=== PATIENT | male | born 1930 | race Caucasian/White ===

== ENCOUNTER 2018-08-20 14:49 | Inpatient (IN) | payer MEDICARE, BC ==
[~2018-08-20] VITALS: Ht 175.3 cm; Wt 69.0 kg
[2018-08-20] MEDS ORDERED: ACETAMINOPHEN 650 MG SUPP PR ONE (15:30)
--- NOTE | 2018-08-20 15:39 | REP ---
Clinical: Trauma. Comparison: None . Findings: Age-related atrophy and microvascular ischemic changes are appreciated. The ventricles and sulci are symmetric. [place]-white differentiation is maintained. There is no evidence for acute intracranial hemorrhage, mass/mass effect, pathology or infarction. No extra-axial fluid collection. Calvarium is intact. Paranasal sinuses and mastoid air cells are clear. Postsurgical changes to the right by suggested. Impression: Age related atrophy and microvascular ischemic changes. No acute intracranial hemorrhage, infarction, or mass/mass effect. Electronically Signed by Ten Palomares MD 08/20/2018 03:30 P
--- NOTE | 2018-08-20 15:40 | REP ---
Clinical: Trauma. Technique: Axial noncontrast images from the skull base to the thoracic inlet with coronal and sagittal re-formations. Findings: Alignment and lordosis maintained. Moderate/advanced multilevel degenerative disc osteophyte complexes are appreciated. There is no evidence for acute fracture / compression injury or subluxation. There are elements and spinous processes are intact. Spinal canal is patent. Paravertebral soft tissues are within normal limits. Impression: Osteopenia and multilevel degenerative changes. No acute fracture / compression injury or subluxation. Electronically Signed by Ten Palomares MD 08/20/2018 03:32 P
--- NOTE | 2018-08-20 15:41 | REP ---
Clinical: Sepsis. Shock . Comparison: None . Findings: The mediastinum and cardiac silhouette are stable and within normal limits for portable technique. The lung tracy demonstrate chronic-appearing changes without acute consolidation, effusion, or pneumothorax. However, left lower lobe atelectasis cannot be excluded. Skeletal structures are intact. Impression: Chronic-appearing changes. Left lower lobe atelectasis cannot be excluded. Electronically Signed by Ten Palomares MD 08/20/2018 03:33 P
--- NOTE | 2018-08-20 15:49 | ECGEPIP ---
[facility] - ED Test Date: 2018-08-20 Pat Name: ALEXANDER SANDY Department: Room: - Gender: Male Tapper Shank: : 1930 Requested By: Marlen Hinson Order Number: [id number] Reading MD: Marlen Hinson Measurements Intervals Chase Rate: 134 P: FL: -1 QRS: 103 QRSD: 122 T: 13 QT: 306 QTc: 458 Interpretive Statements ATRIAL FIBRILLATION WITH RAPID VENTRICULAR RESPONSE INDETERMINATE AXIS INFERIOR MYOCARDIAL INFARCTION, PROBABLY OLD WITH POSTERIOR EXTENSION POSSIBLE PRIOR INFERIOIR INFARCT No prior Electronically Signed on 08-20-2018 15:49:08 EDT by Marlen Hisnon
[2018-08-20] MEDS ORDERED: WARF-58 PO (16:01)
[2018-08-20] MEDS ORDERED: WELLTAB40 PO (16:01)
[2018-08-20] MEDS ORDERED: AMLO5TAB6 PO (16:01)
[2018-08-20] MEDS ORDERED: WELLTAB38 PO (16:01)
[2018-08-20] MEDS ORDERED: DONE10TA90 PO (16:01)
[2018-08-20] MEDS ORDERED: CBD OIL (16:01)
[2018-08-20] MEDS ORDERED: WARF-18 PO (16:01)
[2018-08-20] MEDS ORDERED: PRIM50TA6 PO (16:01)
[2018-08-20] MEDS ORDERED: PROP40TA62 PO (16:01)
[2018-08-20] MEDS ORDERED: LIPI20TA PO (16:01)
[2018-08-20] MEDS ORDERED: NAME10TA PO (16:01)
[2018-08-20] MEDS ORDERED: VENL75CA2 PO (16:01)
[2018-08-20] MEDS ORDERED: GABA-845 PO (16:01)
[2018-08-20] MEDS ORDERED: VENL150C43 PO (16:01)
[2018-08-20] MEDS ORDERED: ACET1TAB55 PO (16:01)
[2018-08-20] MEDS ORDERED: LISI-542 PO (16:01)
[2018-08-20 16:20] LABS: BASO # 0.1 10^3/uL (0.0-0.2); BASO % 0.3 % (0.0-1.0); EOS % 0.1 % (0.0-3.0); HEMATOCRIT 43.1 % (42.0-52.0); HEMOGLOBIN 14.2 g/dl (13.5-17.5); LYMPH # 0.4 10^3/uL (1.5-4.5); MEAN CORPUSCULAR HEMOGLOBIN 30.5 pg (27.0-33.0); MEAN CORPUSCULAR HGB CONC 32.9 g/dl (32.0-36.5); MEAN CORPUSCULAR VOLUME 92.5 fl (80.0-96.0); MONO # 1.1 10^3/uL (0.0-0.8); MONO % 6.1 % (0.0-5.0); NEUTROPHILS # 16.4 10^3/uL (1.8-7.7); NEUTROPHILS % 91.1 % (36.0-66.0); PLATELET COUNT, AUTOMATED 207 10^3/uL (150-450); RED BLOOD COUNT 4.66 10^6/uL (4.30-6.10); WHITE BLOOD COUNT 17.9 10^3/uL (4.0-10.0)
[2018-08-20] MEDS ORDERED: WARF-23 PO (16:26)
[2018-08-20] MEDS ORDERED: WARF-60 PO (16:26)
[2018-08-20 16:31] LABS: INR 2.58; PROTHROMBIN TIME 27.5 SECONDS (11.8-14.0)
[2018-08-20 16:45] LABS: ALBUMIN 3.1 GM/DL (3.2-5.2); ALT/SGPT 16 U/L (12-78); BILIRUBIN,DIRECT 0.3 MG/DL (0.0-0.2); BILIRUBIN,TOTAL 0.8 MG/DL (0.2-1.0); BLOOD UREA NITROGEN 24 MG/DL (7-18); CALCIUM LEVEL 8.5 MG/DL (8.8-10.2); CARBON DIOXIDE LEVEL 24 MEQ/L (21-32); CHLORIDE LEVEL 109 MEQ/L (98-107); CK-MB VALUE MASS 1.6 NG/ML (<3.6); CPK CREATINE PHOSPHOKINASE 144 U/L (39-308); CREATININE FOR GFR 1.33 MG/DL (0.70-1.30); GLOMERULAR FILTRATION RATE 53.9 (>35); GLUCOSE, FASTING 85 MG/DL (70-100); MB/CK RELATIVE INDEX 1.11 (< OR =4); SODIUM LEVEL 143 MEQ/L (136-145); TOTAL PROTEIN 6.9 GM/DL (6.4-8.2); TROPONIN I < 0.02 NG/ML (< 0.10)
[2018-08-20] MEDS ORDERED: PROPRANOLOL 20 MG TAB PO ONE (16:45)
[2018-08-20] MEDS ORDERED: VANCOMYCIN HCL 1,000 MG, VIAL MATE ADAPTER 1 EACH in D5W 250 ML IV ONE (17:00)
[2018-08-20] MEDS ORDERED: PIPERACILLIN/TAZOBACTAM SOD 3.375 GM in D5W MINI-BAG PLUS 50 ML IV ONE (17:00)
[2018-08-20] MEDS ORDERED: SODIUM CHLORIDE 0.9% 1000ML IV ONE (18:30)
[2018-08-20] MEDS ORDERED: LEVALBUTEROL 1.25 MG/0.5 ML CONCENTRATE NEB INH PRN (18:45)
[2018-08-20] MEDS ORDERED: D5W/0.9% SODIUM CHLORIDE 1,000 ML IV SCH (19:15)
--- NOTE | 2018-08-20 19:15 | HPEPDOC ---
General Date of Admission 08/20/18 Date of Service: Aug 20, 2018 Chief Complaint The patient is a 87-year-old male admitted with a reason for visit of AMS. Source: Patient, Family, RN/MD Exam Limitations: Dementia, Hard of hearing Severity: Moderate Associated Symptoms: Cough, Mechanical fall History of Present Illness 87 year old male from [place] vising the area for 2 weeks. He lives with his son and daughter in law in [place], [place] for the past 3 months who were at bedside and history was taken from them . Pateint has dementia and at present more confused than usual and could not contribute much history. He has PMH of Dementia , TIAs, Afib, Essential tremor, Hypertension, H/o chronic pulmonary embolism with severe pulmonary hypertension s/p surgery > 30 years ago, hyperlipidemia, recent falls x 2 in the past 3 months with rib fractures in right and left, intermittent dysphagia to hard solid foods just came up here 3days ago. Last night he was noted to have some cough and some rattling breaths so was put in a recliner to sleep to help with the breathing . This Am he was found down on the floor confused and cold. He was put back to bed and warmed up however as the day progressed he became more and more lethargic and did not have any urine output. He could not be woken up enough to be fed so then they brought him to the hospital. On arrival to the ED he was febrile to 100.3 tachycardic with afib in RVR at 140s hypoxic with EMS to 85% in RA. He was noted to be confused and somnolent. Catheter was placed to collect urine , Urine output was minimal . CXR showed possible Atelectasis at the right base, Labs significant for WBC of 17K. He was admitted for Pneumonia, acut respiratory faiure with hypoxia and metabolic encephalopathy , Afib with RVR Home Medications Scheduled Amlodipine Besylate (Amlodipine Besylate) 5 Mg Tablet, 5 MG PO QHS, (Reported) Atorvastatin Calcium (Lipitor) 20 Mg Tablet, 20 MG PO QHS, (Reported) Bupropion HCl (Wellbutrin Xl) 300 Mg Tab.er.24h, 300 MG PO QHS, (Reported) Bupropion HCl (Wellbutrin Xl) 150 Mg Tab.er.24h, 150 MG PO QHS, (Reported) Donepezil HCl (Donepezil HCl) 10 Mg Tablet, 10 MG PO QHS, (Reported) Gabapentin (Gabapentin) 400 Mg Capsule, 400 MG PO BID, (Reported) Lisinopril (Lisinopril) 5 Mg Tablet, 5 MG PO QHS, (Reported) Memantine HCl (Namenda) 10 Mg Tablet, 10 MG PO BID, (Reported) Primidone (Primidone) 50 Mg Tablet, 200 MG PO BID, (Reported) Propranolol HCl (Propranolol HCl) 40 Mg Tablet, 40 MG PO BID, (Reported) Venlafaxine HCl (Venlafaxine HCl ER) 150 Mg Cap.er.24h, 300 MG PO QHS, (Reported) Venlafaxine HCl (Venlafaxine HCl ER) 75 Mg Cap.er.24h, 75 MG PO QHS, (Reported) Warfarin Sodium (Warfarin Sodium) 5 Mg Tablet, 5 MG PO Q2D, (Reported) PT ALTERNATES 5MG AND 6 MG, TOOK 6 MG 08/19 Warfarin Sodium (Warfarin Sodium) 6 Mg Tablet, 6 MG PO Q2D, (Reported) PT ALTERNATES 5MG AND 6 MG, HAD 6MG 08/19 Miscellaneous Medications Cannabidiol (Cbd Oil) Btl, (Reported) TAKES 5MG CAPSULES: 1 IN THE AM AND 2 IN THE EVENING FOR TREMORS Allergies Coded Allergies: No Known Allergies (Unverified , 08/20/18) Past Medical History Medical History Dementia , TIAs, Afib, Essential tremor, Hypertension, H/o chronic pulmonary embolism with severe pulmonary hypertension s/p surgery > 30 years ago, hyperlipidemia, recent falls x 2 in the past 3 months with rib fractures in right and left Surgical History Surgery for pulmonary hypertension 30 years ago, zenker's diverticulum surgery Family History Significant Family History: Other (son and grandsons have protein S deficiency) Social History * Smoker: Denies Alcohol: Denies Drugs: denies A-FIB/CHADSVASC A-FIB History Current/History of A-Fib/PAF?: Yes Current PO Anticoag Therapy: Yes Review of Systems Constitutional: Reports: Fever Eyes: Denies: Pain, Vision change ENT: Denies: Head Aches, Ear Pain, Dysphagia Skin: Denies: Rash, Lesions, Breakdown Pulmonary: Reports: Dyspnea, Cough Cardiovascular: Reports: Edema Gastrointestinal: Reports: Constipation; Denies: Nausea, Vomiting, Abdominal Pain, Diarrhea Genitourinary: Reports: Other Symptoms (decreased output) Hematologic: Reports: Other Hematologic (mottled feet) Musculoskeletal: Reports: Shoulder Pain (left) Neurological: Reports: Change in speech (garbled ), Confusion, Other Symptoms (tremors in the left hand) Psych: Reports: Memory Issues Physical Examination General Exam: Positive: Cooperative, Mild Distress, Other (somnolent but easily arousable, oriented only to person only, following commands.) Eye Exam: Positive: Conjunctiva & lids normal ENT Exam: Positive: Atraumatic, Mucous membr. moist/pink, Pharynx Normal Neck Exam: Positive: Supple, +2 carotid pulse wo bruit Chest Exam: Positive: Rales (at the right base), Wheezing (right base), Other (coarse breath sounds bilaterallly) Heart Exam: Positive: Tachycardic, Irregular Rhythm, Normal S1, Normal S2; Negative: Gallops, Murmurs, Rubs Telemetry: Positive: Atrial fibrillation Abdomen Exam: Positive: Normal bowel sounds, Soft; Negative: Tenderness Extremity Exam: Positive: Cyanosis, Edema, Normal pulses, Other (cold and mottled both feet but with palpable pulses) Neuro Exam: Positive: Normal Tone, Reflexes 2+, Other (strengh 4/5 in all 4 limbs, no focal neuro deficits) Psych Exam: Negative: Memory Intact, Oriented x 3 Vital Signs Vital Signs Date Time Temp Pulse Resp B/P (MAP) Pulse Ox O2 Delivery O2 Flow Rate FiO2 08/20/18 18:15 126/74 (91) 08/20/18 18:04 145 96 08/20/18 15:15 100.3 24 Laboratory Data Labs 24H Laboratory Tests 2 08/20/18 15:14: Bedside Glucose (Misc Panel) 91 08/20/18 15:44: POC pH (Misc Panel) 7.404, POC Base Excess (Misc Panel) -5.0L, POC Saturated Percent O2 (Misc) 92L, POC pO2 (Misc Panel) 63.0L, POC pCO2 (Misc Panel) 32.1L, POC HCO3 (Misc Panel) 20.0L, POC Total CO2 (Misc Panel) 21.0L 08/20/18 16:00: Anion Gap 10, Glomerular Filtration Rate 53.9, Calcium Level 8.5L, Aspartate Amino Transf (AST/SGOT) 15, Alanine Aminotransferase (ALT/SGPT) 16, Alkaline Phosphatase 137H, Total Bilirubin 0.8, Direct Bilirubin 0.3H, Total Creatine Kinase 144, Creatine Kinase MB 1.6, Creatine Kinase MB Relative Index 1.11, Tro ponin I < 0.02, Total Protein 6.9, Albumin 3.1L, Albumin/Globulin Ratio 0.82L 08/20/18 16:14: Immature Granulocyte % (Auto) 0.4, White Blood Count 17.9H, Red Blood Count 4.66, Hemoglobin 14.2, Hematocrit 43.1, Mean Corpuscular Volume 92.5, Mean Corpuscular Hemoglobin 30.5, Mean Corpuscular Hemoglobin Concent 32.9, Red Cell Distribution Width 16.6H, Platelet Count 207, Neutrophils (%) (Auto) 91.1H, Lymphocytes (%) (Auto) 2.0L, Monocytes (%) (Auto) 6.1H, Eosinophils (%) (Auto) 0.1, Basophils (%) (Auto) 0.3, Neutrophils # (Auto) 16.4H, Lymphocytes # (Auto) 0.4L, Monocytes # (Auto) 1.1H, Eosinophils # (Auto) 0.0, Basophils # (Auto) 0.1, Nucleated Red Blood Cells % (auto) 0.0, Prothrombin Time 27.5H, Prothromb Time International Ratio 2.58, Lactic Acid Level 1.5 CBC/BMP Laboratory Tests 08/20/18 16:00 08/20/18 16:14 Red Blood Count 4.66, Mean Corpuscular Volume 92.5, Mean Corpuscular Hemoglobin 30.5, Mean Corpuscular Hemoglobin Concent 32.9, Red Cell Distribution Width 16.6 H, Neutrophils (%) (Auto) 91.1 H, Lymphocytes (%) (Auto) 2.0 L, Monocytes (%) (Auto) 6.1 H, Eosinophils (%) (Auto) 0.1, Basophils (%) (Auto) 0.3, Neutrophils # (Auto) 16.4 H, Lymphocytes # (Auto) 0.4 L, Monocytes # (Auto) 1.1 H, Eosinophils # (Auto) 0.0, Basophils # (Auto) 0.1 Microbiology Microbiology 08/20/18 Blood Culture, Received Pending 08/20/18 Blood Culture, Received Pending Assessment/Plan 87 year old male from [place] vising the area for 2 weeks. He lives with his son and daughter in law in [place], [place] for the past 3 months who were at bedside and history was taken from them . Pateint has dementia and at present more confused than usual and could not contribute much history. He has PMH of Dementia , TIAs, Afib, Essential tremor, Hypertension, H/o chronic pulmonary em bolism with severe pulmonary hypertension s/p surgery > 30 years ago, hyperlipidemia, recent falls x 2 in the past 3 months with rib fractures in right and left, intermittent dysphagia to hard solid foods just came up here 3days ago. Last night he was noted to have some cough and some rattling breaths so was put in a recliner to sleep to help with the breathing . This Am he was found down on the floor confused and cold. He was put back to bed and warmed up however as the day progressed he became more and more lethargic and did not have any urine output. He could not be woken up enough to be fed so then they brought him to the hospital. On arrival to the ED he was febrile to 100.3 tachycardic with afib in RVR at 140s hypoxic with EMS to 85% in RA. He was noted to be confused and somnolent. Catheter was placed to collect urine , Urine output was minimal . CXR showed possible Atelectasis at the right base, Labs significant for WBC of 17K. He was admitted for Pneumonia, acute respiratory failure with hypoxia and metabolic encephalopathy , Afib with RVR Pneumonia will treat with Zosyn patient does have h/o recent rib fracture on jak right and also intermittent dysphagia to solids so there may be a component of aspiration so using Zosyn for anaerobic coverage. Ns bolus then maintainence fluid Metabolic encephalopathy on the back ground of dementia due to fever and infection Sitter if needed. Acute respiratory failure with hypoxia due to pneumonia lev albuterol prn. oxygen supplementation A fib with RVR will continue propranolol has missed his doses in jak last 24 hours. if still remains uncontrolled will give digoxin. continue coumadin Dementia with anxiety and depression on multiple meds will hold all Hold memantine, bupropion, venlafaxine, donepezil till mental status improves. Hypertension will continue propranolol will continue amlodipine with hold parameters. will hold lisinopril Essential Tremor hold primidone till mental status improves Hyperlipidemia continue statin H/O Pulmonary embolism continue coumadin. H/o multiple TIAs 3 in the last 6 months. Now no focal weakness moves all limbs equally. Plan / VTE VTE Prophylaxis Ordered?: Yes GERTRUDIS AGUIRRE MD Aug 20, 2018 19:15
[2018-08-20] MEDS ORDERED: amLODIPine 5 MG TAB PO SCH (21:00)
[2018-08-20] MEDS ORDERED: LIDOCAINE 2% 5ML JELLY UROJET TOP ONE ×2 (21:30→22:30)
[2018-08-20] MEDS ORDERED: LIDOCAINE 2% 5ML JELLY UROJET As Ordered ONE (21:31)
[2018-08-20] MEDS ORDERED: DIGOXIN INJ 0.5 MG/2 ML AMP (J1160) IV ONE (22:00)
--- NOTE | 2018-08-20 23:19 | IPNPDOC ---
Text Note Date of Service The patient was seen on 08/20/18. NOTE Patient admitted with PNA, Dementia and afib RVR; Called by ED earlier this evening because patient with BPH, urine retention and unable to place scott despite 4 attempts (coude and regular). Urology consulted and attempted with flex scope without success - Case discussed with Dr Brownlee who will take patient to OR for placement. Vital Signs Label Value Date Time Patient Temperature 98.8 degrees F 08/20/181842 Temperature Source Rectal 08/20/181842 Respiratory Rate 24 bpm 08/20/181842 Blood Pressure Assessment 133/74 (93) 08/20/181842 Source Automatic Cuff (NIBP) Position Supine Bedside Pulse Oximetry 97 % 08/20/181842 Pulse 128 08/20/181844 Item Value Date Time Oxygen Flow Rate 2.0 L/min 08/20/181842 VS,Zac, I+O VS, Zac, I+O JAMES GRUBBS DO Aug 20, 2018 23:19
--- NOTE | 2018-08-20 23:28 | SMCUROLCON ---
Urology Consultation General Date of Consultation 08/20/18 Reason For Consultation This patient is seen for Metabolic Encephalopathy, Pneumonia. And urinary retention. History of Present Illness 87 year old male from [place] vising the area for 2 weeks. He lives with his son and daughter in law in [place], [place] for the past 3 months who were at bedside and history was taken from them . Pateint has dementia and at present more confused than usual and could not contribute much history. He has PMH of [place] , TIAs, Afib, Essential tremor, Hypertension, H/o chronic pulmonary embolism with severe pulmonary hypertension s/p surgery > 30 years ago, hyperlipidemia, recent falls x 2 in the past 3 months with rib fractures in right and left, intermittent dysphagia to hard solid foods just came up here 3days ago. Last night he was noted to have some cough and some rattling breaths so was put in a recliner to sleep to help with the breathing . This Am he was found down on the floor confused and cold. He was put back to bed and warmed up however as the day progressed he became more and more lethargic and did not have any urine output. He could not be woken up enough to be fed so then they brought him to the hospital. On arrival to the ED he was febrile to 100.3 tachycardic with afib in RVR at 140s hypoxic with EMS to 85% in RA. He was noted to be confused and somnolent. Catheter was placed to collect urine , Urine output was minimal . CXR showed possible Atelectasis at the right base, Labs significant for WBC of 17K. He was admitted for Pneumonia, acute respiratory failure with hypoxia and metabolic encephalopathy , Afib with RVR. This per Dr. Cobb. Patient has not voided into while in ED. Bladder scan 800cc in bladder. 3 attempts were made to place a Mondragon cath without success. Medications Current Medications Current Medications Amlodipine Besylate (Norvasc) 5 mg QHS PO ; Start 08/20/18 at 21:00 Atorvastatin Calcium (Lipitor) 20 mg QHS PO ; Start 08/20/18 at 21:00 Dextrose/Sodium Chloride 1,000 ml @ 100 mls/hr Q10H IV ; Start 08/20/18 at 19:15 Home Med (Med Rec Complete!) ASDIRECTED XX ; Start 08/20/18 at 16:30; Stop at 16:31; Status DC Levalbuterol HCl (Xopenex Neb) 0.63 mg Q4HP PRN INH SOB/WHEEZING; Start 08/20/18 at 18:45 Piperacillin Sod/ Tazobactam Sod 3.375 gm/Dextrose 50 ml @ 50 mls/hr Q6H IV ; Start 08/21/18 at 00:00 Propranolol HCl (Inderal) 40 mg BID PO ; Start 08/21/18 at 09:00 Warfarin Sodium (Coumadin) 5 mg Q48H PO ; Start 08/20/18 at 21:00 Warfarin Sodium (Coumadin) 6 mg Q48H PO ; Start 08/21/18 at 21:00 Allergies Allergies: Coded Allergies: No Known Allergies (Unverified , 08/20/18) Physical Examination Abdomen Exam: Soft Male Exam: Normal Genital Exam Vital Signs/I&O Vital Signs Date Time Temp Pulse Resp B/P (MAP) Pulse Ox O2 Delivery O2 Flow Rate FiO2 08/20/18 21:12 99.3 08/20/18 18:45 128 127/79 (95) 94 08/20/18 18:43 24 Nasal Cannula 2.0 Laboratory Data 24H Labs Laboratory Tests 2 08/20/18 15:14: Bedside Glucose (Misc Panel) 91 08/20/18 15:44: POC pH (Misc Panel) 7.404, POC Base Excess (Misc Panel) -5.0L, POC Saturated Percent O2 (Misc) 92L, POC pO2 (Misc Panel) 63.0L, POC pCO2 (Misc Panel) 32.1L, POC HCO3 (Misc Panel) 20.0L, POC Total CO2 (Misc Panel) 21.0L 08/20/18 16:00: Anion Gap 10, Glomerular Filtration Rate 53.9, Calcium Level 8.5L, Aspartate Amino Transf (AST/SGOT) 15, Alanine Aminotransferase (ALT/SGPT) 16, Alkaline Phosphatase 137H, Total Bilirubin 0.8, Direct Bilirubin 0.3H, Total Creatine Kinase 144, Creatine Kinase MB 1.6, Creatine Kinase MB Relative Index 1.11, Troponin I < 0.02, Total Protein 6.9, Albumin 3.1L, Albumin/Globulin Ratio 0.82L 08/20/18 16:14: Immature Granulocyte % (Auto) 0.4, White Blood Count 17.9H, Red Blood Count 4.66, Hemoglobin 14.2, Hematocrit 43.1, Mean Corpuscular Volume 92.5, Mean Corpuscular Hemoglobin 30.5, Mean Corpuscular Hemoglobin Concent 32.9, Red Cell Distribution Width 16.6H, Platelet Count 207, Neutrophils (%) (Auto) 91.1H, Lymphocytes (%) (Auto) 2.0L, Monocytes (%) (Auto) 6.1H, Eosinophils (%) (Auto) 0.1, Basophils (%) (Auto) 0.3, Neutrophils # (Auto) 16.4H, Lymphocytes # (Auto) 0.4L, Monocytes # (Auto) 1.1H, Eosinophils # (Auto) 0.0, Basophils # (Auto) 0.1, Nucleated Red Blood Cells % (auto) 0.0, Prothrombin Time 27.5H, Prothromb Time International Ratio 2.58, Lactic Acid Level 1.5 CBC/BMP Laboratory Tests 08/20/18 16:00 08/20/18 16:14 Red Blood Count 4.66, Mean Corpuscular Volume 92.5, Mean Corpuscular Hemoglobin 30.5, Mean Corpuscular Hemoglobin Concent 32.9, Red Cell Distribution Width 16.6 H, Neutrophils (%) (Auto) 91.1 H, Lymphocytes (%) (Auto) 2.0 L, Monocytes (%) (Auto) 6.1 H, Eosinophils (%) (Auto) 0.1, Basophils (%) (Auto) 0.3, Neutrophils # (Auto) 16.4 H, Lymphocytes # (Auto) 0.4 L, Monocytes # (Auto) 1.1 H, Eosinophils # (Auto) 0.0, Basophils # (Auto) 0.1 Microbiology Microbiology 08/20/18 Blood Culture, Received Pending 08/20/18 Blood Culture, Received Pending Assessment Patient is a urinary retention. An attempt to place a 18 [place] Coude catheter was done without success. I attempted to perform cystoscopy and emergency room. This was unsuccessful due to the followin. Patient had multiple false passages. 2. Procedure was performed with the rigid cystoscopy in a standard bed and was unable to maneuver the scope anteriorly to be able to find my way into the bladder. 3. Were unable to use the flexible cystoscopy. Secondary to the fact that Flex Cystoscope is a digital scope and the tower is an analog. Plan Performed rigid cystoscopy in the operating room with possible urethral dilation and Mondragon cath placement. The procedure was discussed previously with his son David Richards. He stated that he was at a location that is difficult to reach by phone and that he will be in to see his father tomorrow Time Spent on Consult: Time Spent / Consult (Minutes): 90 RUSTAM DILLON MD Aug 20, 2018 23:28
[2018-08-21] VITALS (13 sets, daily range): BP systolic 108–170; BP diastolic 58–94
[2018-08-21] MEDS ORDERED: PIPERACILLIN/TAZOBACTAM SOD 3.375 GM in D5W MINI-BAG PLUS 50 ML IV SCH ×2
[2018-08-21] MEDS ORDERED: DEXTROSE 50% 50 ML SYRINGE As Ordered ONE (00:09)
[2018-08-21] MEDS ORDERED: DEXTROSE 50% 50 ML SYRINGE IV STA (00:31)
[2018-08-21] MEDS ORDERED: fentaNYL 100 MCG/2 ML INJECTION (J3010) As Ordered ONE (00:41)
[2018-08-21] MEDS ORDERED: ESMOLOL INJ 100MG/10ML VIAL As Ordered ONE (00:41)
[2018-08-21] MEDS ORDERED: PROPOFOL 200 MG/20 ML VIAL As Ordered ONE (00:41)
[2018-08-21] MEDS ORDERED: DEXTROSE 50% 50 ML SYRINGE IV PRN (01:00)
[2018-08-21] MEDS ORDERED: GLUCOSE 4 GM CHEW TABLET PO PRN (01:00)
[2018-08-21] MEDS ORDERED: GLUCAGON FOR INJ 1 MG VIAL (J1610) SC PRN (01:00)
[2018-08-21] MEDS ORDERED: fentaNYL 100 MCG/2 ML INJECTION (J3010) IV PRN (02:00)
[2018-08-21] MEDS ORDERED: LR 1,000 ML IV SCH (02:00)
[2018-08-21] MEDS ORDERED: ONDANSETRON 4MG/2ML VIAL (J2405) IV PRN (02:00)
--- NOTE | 2018-08-21 02:35 | ROOPDOC ---
[facility] Report Of Operation Report of Operation DATE OF PROCEDURE: 08/21/18 PREPROCEDURE DIAGNOSES: Urethral stricture and urinary retention. POSTPROCEDURE DIAGNOSES: Same. PROCEDURE: Urethroscopy and 18 FR. suprapubic pubic tube placement. SURGEON: MD Kem SKIDDER OPERATOR: None ANESTHESIA: Sedation. ESTIMATED BLOOD LOSS: Approximately minimal COMPLICATIONS: None. REMARKS: . PROCEDURE NOTE: Patient 87-year-old male for [place] visit to the area for 2 weeks. He lives with his son and [id number] in [facility]. He has dementia and is presenting with more confusion than usual could not contribute much to the history and has multiple medical problems including A. fib in RVR. In emergency room that unable to place a Mondragon catheter. I attempted to place Mondragon catheter and could not. I performed rigid rigid cystoscopy in emergency room, saw what appeared to be multiple false passages and no clear opening. DESCRIPTION OF PROCEDURE: Consents were signed emergency room over the phone with his son David. Patient was assessed by anesthesia although the patient is in A. fib in RVR, this center emergency case. Patient identified some brought emergency room. After patient was brought into the cystoscopy suit, the first timeout was performed. Patient was sedated. Patient was prepped and draped in the standard fashion. A second timeout was performed. A rigid cystoscope was used to inspect the urethra. The urethra appeared to be a wall of scar tissue without any obvious opening. I then used a flexible cystoscope. A 0.38 wire was used to attempt to cannulae multiple openings and none of which appeared to enter into the bladder. I then contacted the patient's son David to obtain a consent to place a suprapubic tube cath. The son agreed with the plan and gave verbal consent. Patient lowered abdomen was prepped and draped. A small incision was made in the skin for the suprapubic tube. The suprapubic tube pierced skin into the bladder 2 finger breaths above the suprapubic bone. The suprapubic tube was cannulated with a 038 wire. A 18 [place] tip catheter was placed over wire into the bladder. Balloon was filled to 10 mL. The catheter was irrigated and the urine came out. A 2.0 silk suture was used to tie the cath to the skin. Patient was properly taken out of lithotomy position, washed off, awakened from anesthesia, placed on the stretcher and taken to recovery. RUSTAM DILLON MD Aug 21, 2018 02:35
[2018-08-21] MEDS ORDERED: D5W/0.9% SODIUM CHLORIDE 1,000 ML IV SCH (02:45)
[2018-08-21] MEDS: WARFARIN SOD 5 MG TAB PO SCH (05:23)
[2018-08-21] MEDS: ATORVASTATIN 20 MG TAB PO SCH ×2 (05:23→20:32)
[2018-08-21 06:16] LABS: BASO % 0.4 % (0.0-1.0); EOS # 0.3 10^3/uL (0.0-0.50); EOS % 2.8 % (0.0-3.0); HEMATOCRIT 38.9 % (42.0-52.0); HEMOGLOBIN 12.7 g/dl (13.5-17.5); LYMPH # 0.6 10^3/uL (1.5-4.5); LYMPH % 6.1 % (24.0-44.0); MEAN CORPUSCULAR HGB CONC 32.6 g/dl (32.0-36.5); MONO # 1.1 10^3/uL (0.0-0.8); MONO % 10.6 % (0.0-5.0); NEUTROPHILS % 79.6 % (36.0-66.0); PLATELET COUNT, AUTOMATED 167 10^3/uL (150-450); RED BLOOD COUNT 4.23 10^6/uL (4.30-6.10); WHITE BLOOD COUNT 10.1 10^3/uL (4.0-10.0)
[2018-08-21 06:28] LABS: INR 2.47; PROTHROMBIN TIME 26.6 SECONDS (11.8-14.0)
[2018-08-21 06:35] LABS: CALCIUM LEVEL 8.2 MG/DL (8.8-10.2); CREATININE FOR GFR 1.26 MG/DL (0.70-1.30); GLOMERULAR FILTRATION RATE 57.4 (>35); POTASSIUM SERUM 3.7 MEQ/L (3.5-5.1)
[2018-08-21] MEDS: PIPERACILLIN/TAZOBACTAM SOD 3.375 GM in D5W MINI-BAG PLUS 50 ML IV SCH ×3 (08:07→20:33)
[2018-08-21] MEDS: PROPRANOLOL 20 MG TAB PO SCH ×2 (08:07→20:32)
[2018-08-21 08:17] LABS: APPEARANCE, URINE CLOUDY (CLEAR); BACTERIA, URINE AUTO NEGATIVE (NEGATIVE); BILIRUBIN, URINE AUTO NEGATIVE (NEGATIVE); BLOOD, URINE BLOOD 3+ (NEGATIVE); COLOR, URINE RED (YELLOW); GLUCOSE, URINE (UA) AUTO NEGATIVE (NEGATIVE); KETONE, URINE AUTO NEGATIVE (NEGATIVE); LEUKOCYTE ESTERASE, URINE AUTO TRACE (NEGATIVE); NITRITE, URINE AUTO NEGATIVE (NEGATIVE); PROTEIN, URINE AUTO 2+ mg/dL (NEGATIVE); RBC, URINE AUTO TNTC /HPF (0-3); SPECIFIC GRAVITY URINE AUTO 1.021 (1.002-1.035); SQUAMOUS EPITHELIAL CELL UR AU 1 /HPF (0-6); URIC ACID CRYSTALS SMALL; UROBILINOGEN, URINE AUTO 0.2 mg/dL (0.0-2.0); WBC, URINE AUTO 36 /HPF (0-3)
[2018-08-21] MEDS ORDERED: ACETAMINOPHEN TAB 650MG DOSE (2X325MG) PO PRN (17:45)
--- NOTE | 2018-08-21 17:47 | IPNPDOC ---
Subjective Date Seen The patient was seen on 08/21/18. Subjective Chief Complaint/HPI 87m with dementia, afib, chronic pe on coumadin, pulmonary htn, p/w fever, cough, admitted with pneumonia, rapid afib, and urinary retention. pt unable to provide any hx pt unable to provide any ros General: Reports: ROS Unobtainable Objective Physical Examination General Exam: Positive: Cooperative, Mild Distress, Other (somnolent but easily arousable, oriented only to person only, following commands.) Eye Exam: Positive: Conjunctiva & lids normal ENT Exam: Positive: Atraumatic, Mucous membr. moist/pink, Pharynx Normal Neck Exam: Positive: Supple, +2 carotid pulse wo bruit Chest Exam: Positive: Rales (at the right base), Wheezing (right base), Other (coarse breath sounds bilaterallly) Heart Exam: Positive: Tachycardic, Irregular Rhythm, Normal S1, Normal S2; Negative: Gallops, Murmurs, Rubs Telemetry: Positive: Atrial fibrillation Abdomen Exam: Positive: Normal bowel sounds, Soft; Negative: Tenderness Extremity Exam: Positive: Cyanosis, Edema, Normal pulses, Other (cold and mottled both feet but with palpable pulses) Neuro Exam: Positive: Normal Tone, Reflexes 2+, Other (strengh 4/5 in all 4 limbs, no focal neuro deficits) Psych Exam: Negative: Memory Intact, Oriented x 3 Assessment /Plan Assessment 87m p/w fever, cough, afib, urinary retention Urinary retention unable to place scott suprapubic catheter placed last night draining well suture to be removed prior to dc fever possibility of pna may also be uti due to retention (or vice versa) on zosyn currently follow up cultures afib/pe continue coumadin continue propranolol given persistent tachycardia will stop norvasc and start cardizem po cough seen by speech diet downgraded to puree may have component of aspiration, ph, and fluid overload as well fluids dced will check echo Plan/VTE VTE Prophylaxis Ordered?: Yes VS, I&O, 24H, Fishbone Vital Signs/I&O Vital Signs Date Time Temp Pulse Resp B/P (MAP) Pulse Ox O2 Delivery O2 Flow Rate FiO2 08/21/18 17:23 100.1 08/21/18 16:00 134 20 166/94 (118) 91 08/21/18 08:00 2.0 08/21/18 00:00 Nasal Cannula I&O- Last 24 Hours up to 6 AM 08/21/18 06:00 Intake Total 1950 ml Output Total 725 ml Balance 1225 ml Laboratory Data 24H LABS Laboratory Tests 2 08/20/18 23:58: Bedside Glucose (Misc Panel) 43L 08/21/18 02:06: Bedside Glucose (Misc Panel) 195H 08/21/18 05:44: Immature Granulocyte % (Auto) 0.5, White Blood Count 10.1H, Red Blood Count 4.23L, Hemoglobin 12.7L, Hematocrit 38.9L, Mean Corpuscular Volume 92.0, Mean Corpuscular Hemoglobin 30.0, Mean Corpuscular Hemoglobin Concent 32.6, Red Cell Distribution Width 17.0H, Platelet Count 167, Neutrophils (%) (Auto) 79.6H, Lymphocytes (%) (Auto) 6.1L, Monocytes (%) (Auto) 10.6H, Eosinophils (%) (Auto) 2.8, Basophils (%) (Auto) 0.4, Neutrophils # (Auto) 8.0H, Lymphocytes # (Auto) 0.6L, Monocytes # (Auto) 1.1H, Eosinophils # (Auto) 0.3, Basophils # (Auto) 0.0, Nucleated Red Blood Cells % (auto) 0.0, Prothrombin Time 26.6H, Prothromb Time International Ratio 2.47, Anion Gap 4L, Glomerular Filtration Rate 57.4, Blood Urea Nitrogen 22H, Creatinine 1.26, Sodium Level 144, Potassium Level 3.7, Chloride Level 112H, Carbon Dioxide Level 28, Calcium Level 8.2L CBC/BMP Laboratory Tests 08/21/18 05:44 Red Blood Count 4.23 L, Mean Corpuscular Volume 92.0, Mean Corpuscular Hemoglobin 30.0, Mean Corpuscular Hemoglobin Concent 32.6, Red Cell Distribution Width 17.0 H, Neutrophils (%) (Auto) 79.6 H, Lymphocytes (%) (Auto) 6.1 L, Monocytes (%) (Auto) 10.6 H, Eosinophils (%) (Auto) 2.8, Basophils (%) (Auto) 0.4, Neutrophils # (Auto) 8.0 H, Lymphocytes # (Auto) 0.6 L, Monocytes # (Auto) 1.1 H, Eosinophils # (Auto) 0.3, Basophils # (Auto) 0.0, Calcium Level 8.2 L Microbiology Microbiology 08/20/18 Blood Culture - Preliminary, Resulted No growth after 24 hours . All specim... 08/20/18 Blood Culture - Preliminary, Resulted No growth after 24 hours . All specim... 08/20/18 Urine Culture, Received Pending CASSANDRA MENDEZ MD Aug 21, 2018 17:47
[2018-08-21] MEDS ORDERED: WARFARIN SOD 3 MG TAB PO SCH (21:00)
[2018-08-22] VITALS (8 sets, daily range): BP systolic 143–179; BP diastolic 66–92
[2018-08-22] MEDS ORDERED: LORazepam 2 MG/ML VIAL (J2060) IV STA (01:00)
[2018-08-22] MEDS ORDERED: HALOPERIDOL 5 MG/ML VIAL (J1630) IM ONE ×2 (01:00→09:00)
[2018-08-22] MEDS: PIPERACILLIN/TAZOBACTAM SOD 3.375 GM in D5W MINI-BAG PLUS 50 ML IV SCH ×4 (02:37→20:04)
[2018-08-22 05:22] LABS: BASO # 0.1 10^3/uL (0.0-0.2); BASO % 0.5 % (0.0-1.0); EOS # 0.3 10^3/uL (0.0-0.50); EOS % 3.2 % (0.0-3.0); HEMATOCRIT 38.8 % (42.0-52.0); HEMOGLOBIN 12.7 g/dl (13.5-17.5); LYMPH # 0.6 10^3/uL (1.5-4.5); MEAN CORPUSCULAR HGB CONC 32.7 g/dl (32.0-36.5); MEAN CORPUSCULAR VOLUME 91.7 fl (80.0-96.0); MONO % 9.5 % (0.0-5.0); NEUTROPHILS # 8.4 10^3/uL (1.8-7.7); NEUTROPHILS % 80.4 % (36.0-66.0); PLATELET COUNT, AUTOMATED 161 10^3/uL (150-450); RED BLOOD COUNT 4.23 10^6/uL (4.30-6.10); WHITE BLOOD COUNT 10.4 10^3/uL (4.0-10.0)
[2018-08-22 05:41] LABS: BLOOD UREA NITROGEN 16 MG/DL (7-18); CALCIUM LEVEL 8.2 MG/DL (8.8-10.2); CARBON DIOXIDE LEVEL 22 MEQ/L (21-32); CHLORIDE LEVEL 113 MEQ/L (98-107); CREATININE FOR GFR 0.98 MG/DL (0.70-1.30); GLOMERULAR FILTRATION RATE > 60.0 (>35); GLUCOSE, FASTING 98 MG/DL (70-100); POTASSIUM SERUM 3.7 MEQ/L (3.5-5.1); SODIUM LEVEL 134 MEQ/L (136-145)
[2018-08-22 07:48] LABS: INR 1.56; PROTHROMBIN TIME 18.4 SECONDS (11.8-14.0)
--- NOTE | 2018-08-22 08:17 | IPNPDOC ---
Text Note Date of Service The patient was seen on 08/22/18. NOTE Subjective: Patient seen and examined at bedside. Overnight events significant for agitation. This morning patient is confused, and a poor historian. Objective: General: NAD, lying comfortably in bed, slightly agitated HEENT: NC/AT, EOMI, PERRL Lungs: CTA B/L Heart: +S1S2, irregular Abd: soft, NT, +BS, SPC/bandages in place Ext: no edema A/P: 87 yo male presents for cough, fever, found to be in afib complicated with urinary retention: #urinary retention - s/p suprapubic catheter - urology f/u pending #pneumonia - on zosyn day #3 - follow up cultures #UTI - follow up cultures - as above receiving zosyn #afib - a/c with coumadin - cardizem #DLP - lipitor #PE - as above on coumadin #dysphagia - seen by speech therapy - pureed diet #dementia/agitation - baseline dementia - haldol given this morning - psych c/s pending #DVT prophylaxis - coumadin Dispo: cultures pending, IV Zosyn, urology f/u VS,Fishbone, I+O VS, Fishbone, I+O Laboratory Tests 08/22/18 04:59 Red Blood Count 4.23 L, Mean Corpuscular Volume 91.7, Mean Corpuscular Hemoglobin 30.0, Mean Corpuscular Hemoglobin Concent 32.7, Red Cell Distribution Width 16.6 H, Neutrophils (%) (Auto) 80.4 H, Lymphocytes (%) (Auto) 6.0 L, Monocytes (%) (Auto) 9.5 H, Eosinophils (%) (Auto) 3.2 H, Basophils (%) (Auto) 0.5, Neutrophils # (Auto) 8.4 H, Lymphocytes # (Auto) 0.6 L, Monocytes # (Auto) 1.0 H, Eosinophils # (Auto) 0.3, Basophils # (Auto) 0.1, Calcium Level 8.2 L Vital Signs Date Time Temp Pulse Resp B/P (MAP) Pulse Ox O2 Delivery O2 Flow Rate FiO2 08/22/18 05:19 98 152/90 08/22/18 04:00 2.0 08/22/18 04:00 98.6 18 95 08/21/18 00:00 Nasal Cannula I&O- Last 24 Hours up to 6 AM 08/22/18 06:00 Intake Total 1090 ml Output Total 1925 ml Balance -835 ml FLORY DINERO MD Aug 22, 2018 08:17
[2018-08-22] MEDS: PROPRANOLOL 20 MG TAB PO SCH ×2 (09:36→20:05)
[2018-08-22] MEDS ORDERED: OLANZapine INTRAMUSCULAR 10 MG VIAL (S0166) IM ONE (10:00)
--- NOTE | 2018-08-22 10:10 | ECGEPIP ---
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
[2018-08-22 13:01] LABS: ABG BASE EXCESS 0.8 (-2.0-2.0); ABG HCO3 23.5 MEQ/L (22.0-26.0); ABG O2 SATURATION 74.5 % (95.0-99.0); ABG PARTIAL PRESSURE CO2 32.4 mmHg (35.0-45.0); ABG STANDARD HCO3 24.6 MEQ/L (22.0-26.0); ABG TOTAL CO2 24.5 MEQ/L (23.0-31.0); ABG pH (ARTERIAL) 7.479 UNITS (7.350-7.450)
[2018-08-22 13:05] LABS: ABG PARTIAL PRESSURE O2 37.9 mmHg (75.0-100.0)
--- NOTE | 2018-08-22 13:32 | REP ---
Portable chest x-ray: Single view. History: Shortness of breath. Comparison study: August 20, 2018. Findings: EKG monitoring electrodes overlie the chest. The patient is status post prior median sternotomy. Oxygen delivery tubing is seen. Cardiomegaly is observed unchanged. There is linear fibrosis versus discoid atelectasis in the left base unchanged. Pulmonary vasculature is somewhat congested. No definite infiltrate. Impression: Cardiomegaly. Linear fibrosis versus plate-like atelectasis left base. Increased pulmonary vasculature. No definite infiltrate. Electronically Signed by Chad Lemus MD 08/22/2018 01:23 P
--- NOTE | 2018-08-22 14:35 | NUR ---
Recommend NPO d/t RLL pneumonia & baseline cough/wet vocal quality. Suspect possible aspiration, unable to r/o during bedside evaluation. Exam also limited by pt agitation, cognition, poor positioning. Dysphagia tx- reassess for PO intake as appropriate when pt is more cooperative & lungs cleared. Addendum: 08/22/18 at 1439 by MART OLGUIN [facility] Amended: Links added. Addendum: 08/22/18 at 1441 by MART OLGUIN [facility] Standard aspiration precautions: head of bed >30 degrees, oral care 3x/day.
[2018-08-22] MEDS ORDERED: HALOPERIDOL 5 MG/ML VIAL (J1630) IV ONE (15:00)
[2018-08-22] MEDS ORDERED: SLF 3 ML SYR IV PRN (15:30)
--- NOTE | 2018-08-22 18:54 | CR ---
DATE OF CONSULTATION: 08/22/2018 CHIEF COMPLAINT: He is agitated. SUBJECTIVE: He is 87 years old, has some family support, unclear where he lives, but he suggests that he lives in [place]. I have been asked to see him by the hospitalist, Dr. Duff, who I spoke with before and after seeing the patient. History is also obtained from the chart. The patient is not in a position to narrate a history accurately, given baseline cognitive deficits, and current confusion. I have been asked to see him because of his agitation, essentially. He had been agitated, and was given haloperidol 2 mg intramuscular earlier today at about 8 o'clock in the morning, settled for a short while, became agitated again, was given olanzapine intramuscularly at 5 mg, and on further agitation, was given Haldol 2 mg intravenously, this was about over 5 hours ago, and has been less agitated since then. He was admitted a couple of days ago, August 20, 2018, on the hospitalist service, and he has apparently been living with his son and daughter in [place], [place] for the past 3 months or so, and visiting this area for the last 2 weeks. He has baseline dementia; I am not clear as to the severity baseline. He has been though to be more confused than usual, has a history of dementia, transient ischemic attacks, atrial fibrillation, essential tremor, hypertension, has a history of chronic pulmonary embolism, severe pulmonary hypertension, which has occurred after surgery more than 30 years ago, has had falls, on a couple of occasions, in the past 3 months, with fractured ribs on the right and left side, difficulty swallowing the last few days. He was apparently noted to have some difficulties with cough, and what is described as rattling breaths, and was found on the floor, confused, cold, became more lethargic, did not have much in terms of urinary output, was brought to the hospital. Has been seen by the hospitalist, and has been thought to have pneumonia, acute respiratory failure with hypoxia, metabolic encephalopathy, atrial fibrillation, and the chest x-ray has shown atelectasis of the right base. White cell count on admission has been about 17,000. Urine output had diminished. PAST MEDICAL HISTORY: As indicated above. PAST PSYCHIATRIC HISTORY: Unknown, apparently some question that he may have been treated for anxieties, and has dementia. MEDICATIONS PRIOR TO COMING TO THE HOSPITAL: These included bupropion at 450 mg daily, donepezil 10 mg daily, gabapentin 400 mg twice a day, lisinopril 5 mg at night, Namenda 10 mg twice a day, primidone 200 mg twice a day, propranolol 40 mg twice a day, venlafaxine 375 mg at night, warfarin. He has also used cannabidiol for tremors. ALLERGIES: No known allergies. SUBSTANCE ABUSE HISTORY: Currently none significant. Has a history of atrial fibrillation as noted above. MENTAL STATUS EXAM: He is tall. He is in hospital clothes. He is lying in bed. He is seen in the presence of staff, one of whom is taking his blood pressure at the moment when I saw him. There is no agitation. He has difficulties maintaining attention, and appears somewhat drowsy, but could answer basic greetings, and inquiries into his current state, though not very coherently. Says he did not remember how his night had gone, and when inquired where he lived, he indicated he lived in [place], but did not go further. He was not able to tell me where we were, nor the date. Affect is restricted in range, and he is only for brief periods coherent. No evidence that he has active thoughts of hurting himself or anyone else. Judgment and insight are compromised. Vital Signs: Blood pressure 160/74, temperature 98, pulse 110. Later blood pressure was 150/78, pulse 102. ASSESSMENT: Delirium, multifactorial. Mild to moderate neurocognitive disorder. Possibly depressive disorder by history. He is confused, disoriented, and has been agitated, has responded somewhat to recent Haldol, including intravenous Haldol. Brief periods of coherence, but has difficulties maintaining attention. It should be noted that he has considerable risk factors for developing delirium, given baseline dementia (unknown severity at this point, and age and infection, metabolic instability). CT scan of the head done upon admission shows atrophy, microvascular ischemic changes. RECOMMENDATIONS: Optimize medical care, including underlying infection, metabolics. Suggest using Haldol 0.5 mg intravenous every 4 hours if agitated, no more than 2.5 mg a day. If there is severe agitation, add Ativan 0.5 mg intramuscularly with the Haldol. The Haldol may go up in terms of the dose, depending on the severity. Avoid using Ativan or any other benzodiazepines generally if possible, as there is a risk of paradoxical agitation. Once agitation is diminished for at least 24 hours, convert Haldol to oral medicine and taper. Thank you for the consult. If there are any questions, please call. My assessment and recommendations are discussed with Dr. Duff. The assessment took 30 minutes.
[2018-08-22] MEDS: ATORVASTATIN 20 MG TAB PO SCH (20:04)
[2018-08-22] MEDS: WARFARIN SOD 5 MG TAB PO SCH (20:05)
[2018-08-22] MEDS: SLF 3 ML SYR IV SCH (20:06)
--- NOTE | 2018-08-22 20:16 | ECHO ---
DATE OF PROCEDURE: 08/22/2018 REFERRING PHYSICIAN: Moody Chen MD INDICATION: Dyspnea and atrial fibrillation. HEIGHT: 175 cm WEIGHT: 75 kg DIMENSIONS IVS: 1.2 LV: 4.2 LVPW: 0.9 LA: 3.8 Aorta: 3.3. Left atrium volume index: 44 FINDINGS The study is of fair technical quality. The patient is in atrial fibrillation with controlled rate. The left ventricle is normal size and systolic function, I estimate ejection fraction (EF) around 60-65%. There is a septal wall motion abnormality likely related to severe pulmonary hypertension. Right ventricle appears grossly normal size and systolic function, but it was poorly seen. Both atria are severely enlarged. Aortic valve is sclerotic, but mobility is preserved. Same applies for mitral valve. Tricuspid and pulmonic valves appear normal. No pericardial effusion is noted. Inferior vena cava was not visualized. Aortic root is normal. Aortic arch and abdominal aorta were not well seen. DOPPLER Doppler interrogation of aortic valve reveals no stenosis and trace insufficiency. There is mild mitral, tricuspid and pulmonic insufficiency. Calculated pulmonary artery pressure is in minimum in high 70s corresponding to severe pulmonary hypertension. Evaluation of diastolic function is inconclusive due to underlying atrial fibrillation. CONCLUSIONS 1. Study is of fair technical quality. 2. Normal left ventricle (LV) size with preserved LV systolic function. 3. Preserved right ventricular function. 4. Severe biatrial enlargement. 5. No hemodynamically significant valvular disease. 6. Unable to estimate central venous pressure but likely severe pulmonary hypertension. COMMENT Subacute bacterial endocarditis (SBE) prophylaxis is not recommended.
[2018-08-23] VITALS (13 sets, daily range): BP systolic 122–192; BP diastolic 58–110
[2018-08-23] MEDS ORDERED: HALOPERIDOL 5 MG/ML VIAL (J1630) IV ONE (01:00)
[2018-08-23] MEDS: PIPERACILLIN/TAZOBACTAM SOD 3.375 GM in D5W MINI-BAG PLUS 50 ML IV SCH ×4 (02:57→21:41)
[2018-08-23] MEDS ORDERED: amLODIPine 5 MG TAB PO SCH (05:00)
[2018-08-23 06:01] LABS: BASO # 0.1 10^3/uL (0.0-0.2); BASO % 0.5 % (0.0-1.0); EOS # 0.1 10^3/uL (0.0-0.50); EOS % 1.2 % (0.0-3.0); HEMATOCRIT 40.4 % (42.0-52.0); HEMOGLOBIN 13.3 g/dl (13.5-17.5); LYMPH # 0.7 10^3/uL (1.5-4.5); MEAN CORPUSCULAR HEMOGLOBIN 29.9 pg (27.0-33.0); MEAN CORPUSCULAR HGB CONC 32.9 g/dl (32.0-36.5); MEAN CORPUSCULAR VOLUME 90.8 fl (80.0-96.0); MONO # 1.2 10^3/uL (0.0-0.8); MONO % 12.2 % (0.0-5.0); NEUTROPHILS % 78.6 % (36.0-66.0); PLATELET COUNT, AUTOMATED 174 10^3/uL (150-450); RED BLOOD COUNT 4.45 10^6/uL (4.30-6.10); WHITE BLOOD COUNT 10.1 10^3/uL (4.0-10.0)
[2018-08-23] MEDS: SLF 3 ML SYR IV SCH ×3 (06:01→22:16)
[2018-08-23] MEDS: hydrALAZINE INJ 20 MG/ML VIAL IV SCH ×4 (06:01→23:38)
[2018-08-23 06:16] LABS: INR 1.54; PROTHROMBIN TIME 18.2 SECONDS (11.8-14.0)
[2018-08-23 06:18] LABS: BLOOD UREA NITROGEN 13 MG/DL (7-18); CALCIUM LEVEL 8.9 MG/DL (8.8-10.2); CARBON DIOXIDE LEVEL 26 MEQ/L (21-32); CHLORIDE LEVEL 107 MEQ/L (98-107); CREATININE FOR GFR 1.04 MG/DL (0.70-1.30); GLOMERULAR FILTRATION RATE > 60.0 (>35); GLUCOSE, FASTING 85 MG/DL (70-100); POTASSIUM SERUM 4.1 MEQ/L (3.5-5.1); SODIUM LEVEL 140 MEQ/L (136-145)
--- NOTE | 2018-08-23 09:03 | IPNPDOC ---
Text Note Date of Service The patient was seen on 08/23/18. NOTE Subjective: Patient seen and examined at bedside. Overnight events significant for agitation. This morning patient is more alert from yesterday, but still poor historian. No medical complaints. Objective: General: NAD, lying comfortably in bed HEENT: NC/AT, EOMI, PERRL Lungs: CTA B/L Heart: +S1S2, irregular Abd: soft, NT, +BS, SPC/bandages in place Ext: no edema A/P: 87 yo male presents for cough, fever, found to be in afib complicated with urinary retention: #urinary retention - s/p suprapubic catheter - urology f/u pending #HTN - resumed lisinopril, continue cardizem - will likely add HCTZ, or possible BB if needed #pneumonia - on zosyn day #4/5 - follow up cultures #UTI - follow up cultures - as above receiving zosyn #afib - a/c with coumadin - cardizem #DLP - lipitor #PE - as above on coumadin #dysphagia - seen by speech therapy - pureed diet #dementia/agitation - baseline dementia - haldol given this morning - psych c/s appreciated - haldol as needed, haldol+ativan for severe agitation #DVT prophylaxis - coumadin Dispo: IV Zosyn, urology f/u VS,Fishbone, I+O VS, Fishbone, I+O Laboratory Tests 08/23/18 05:20 Red Blood Count 4.45, Mean Corpuscular Volume 90.8, Mean Corpuscular Hemoglobin 29.9, Mean Corpuscular Hemoglobin Concent 32.9, Red Cell Distribution Width 16.6 H, Neutrophils (%) (Auto) 78.6 H, Lymphocytes (%) (Auto) 7.0 L, Monocytes (%) (Auto) 12.2 H, Eosinophils (%) (Auto) 1.2, Basophils (%) (Auto) 0.5, Neutrophils # (Auto) 8.0 H, Lymphocytes # (Auto) 0.7 L, Monocytes # (Auto) 1.2 H, Eosinophils # (Auto) 0.1, Basophils # (Auto) 0.1, Calcium Level 8.9 Vital Signs Date Time Temp Pulse Resp B/P (MAP) Pulse Ox O2 Delivery O2 Flow Rate FiO2 08/23/18 08:00 98.8 116 20 146/84 (104) 95 3.0 08/21/18 00:00 Nasal Cannula I&O- Last 24 Hours up to 6 AM 08/23/18 06:00 Intake Total 630 ml Output Total 2825 ml Balance -2195 ml FLORY DINERO MD Aug 23, 2018 09:03
[2018-08-23] MEDS: PROPRANOLOL 20 MG TAB PO SCH (11:03)
--- NOTE | 2018-08-23 11:05 | NUR ---
Recommend MBSS cookie swallow to r/o aspiration d/t pt's hx of coughing meals as reported by family and current dx of pneumonia. Pt less combative and agitated today. Edu to family regarding inconclusiveness of bedside swallow evaluation d/t baseline cough & wet vocal quality. Edu regarding cause of aspiration pneumonia. Addendum: 08/23/[address] [facility] Amended: Links added.
[2018-08-23] MEDS ORDERED: VARIBAR PUDDING 40% w/v 230ML TUBE As Ordered ONE (12:43)
[2018-08-23] MEDS ORDERED: VARIBAR NECTAR 40% w/v 240ML SUSP BTL As Ordered ONE (12:43)
[2018-08-23] MEDS ORDERED: BARIUM SULFATE 700 MG TABLET (E-Z-DISK) As Ordered ONE (12:44)
[2018-08-23] MEDS ORDERED: E-Z-PAQUE 96% w/w SUSP 176GM BTL As Ordered ONE (12:44)
--- NOTE | 2018-08-23 14:32 | NUR ---
Pt seen for modified barium swallow study to determine safest/least restrictive diet. Pt presents with severe pharyngeal phase dysphagia as characterized by: aspiration of honey and nectar thick liquids. Significant pooling in pyriform sinuses with risk of spilling into the airway. Pt is unaware of residue and does not attempt to clear. Wet vocal quality throughout intake. Soft solids empty minimally (per swallow) into the esophagus. Again, Pt is unaware of residue putting him at risk of occlusion of the airway while eating solids. Recommend: NPO including meds. Recommend: consider Endoscopy RAKESH Barone aware Addendum: 08/23/18 at 1440 by NONA CUEVAS TAVO Amended: Links added.
[2018-08-23] MEDS ORDERED: WARFARIN SOD 5 MG TAB PO ONE (17:00)
[2018-08-23] MEDS: HALOPERIDOL 5 MG/ML VIAL (J1630) IV PRN (20:11)
[2018-08-23] MEDS ORDERED: METOPROLOL 5 MG/5 ML VIAL IV PRN (20:30)
--- NOTE | 2018-08-23 20:37 | REP ---
COOKIE SWALLOW The procedure was performed under the direct supervision of Dr. Fairbanks. The procedure was performed with Adrianne Nolen from speech pathology present. 5 ml aliquots of nectar, pudding, solid and honey consistency barium was administered. With nectar and honey consistency barium there is aspiration. The detailed report of this examination will be provided by speech pathology. 2.7 minutes of fluoroscopy time was utilized for this procedure. Reviewed by SHER Zelaya 08/23/2018 02:53 P Electronically Signed by Tristen Fairbanks MD 08/23/2018 08:28 P
[2018-08-23] MEDS ORDERED: LISINOPRIL 5 MG TAB PO SCH (21:00)
[2018-08-23] MEDS: ATORVASTATIN 20 MG TAB PO SCH (22:20)
[2018-08-24 00:54] VITALS: BP 142/72
[2018-08-24] MEDS: HALOPERIDOL 5 MG/ML VIAL (J1630) IV PRN ×3 (01:46→11:46)
[2018-08-24 02:33] VITALS: BP 152/86
[2018-08-24] MEDS: PIPERACILLIN/TAZOBACTAM SOD 3.375 GM in D5W MINI-BAG PLUS 50 ML IV SCH (03:02)
[2018-08-24 03:34] VITALS: BP 146/86
[2018-08-24 05:51] LABS: INR 2.69; PROTHROMBIN TIME 28.5 SECONDS (11.8-14.0)
[2018-08-24 05:56] LABS: BASO # 0.1 10^3/uL (0.0-0.2); BASO % 0.6 % (0.0-1.0); EOS % 0.4 % (0.0-3.0); HEMATOCRIT 48.1 % (42.0-52.0); LYMPH # 0.7 10^3/uL (1.5-4.5); LYMPH % 6.6 % (24.0-44.0); MEAN CORPUSCULAR HEMOGLOBIN 30.1 pg (27.0-33.0); MEAN CORPUSCULAR HGB CONC 32.4 g/dl (32.0-36.5); MEAN CORPUSCULAR VOLUME 92.9 fl (80.0-96.0); MONO # 1.4 10^3/uL (0.0-0.8); MONO % 14.3 % (0.0-5.0); NEUTROPHILS # 7.6 10^3/uL (1.8-7.7); NEUTROPHILS % 77.4 % (36.0-66.0); PLATELET COUNT, AUTOMATED 209 10^3/uL (150-450); RED BLOOD COUNT 5.18 10^6/uL (4.30-6.10); WHITE BLOOD COUNT 9.8 10^3/uL (4.0-10.0)
[2018-08-24 06:00] VITALS: BP 138/78
[2018-08-24] MEDS: hydrALAZINE INJ 20 MG/ML VIAL IV SCH ×2 (06:00→12:00)
[2018-08-24 06:04] LABS: BLOOD UREA NITROGEN 19 MG/DL (7-18); CARBON DIOXIDE LEVEL 22 MEQ/L (21-32); CHLORIDE LEVEL 108 MEQ/L (98-107); CREATININE FOR GFR 1.09 MG/DL (0.70-1.30); GLOMERULAR FILTRATION RATE > 60.0 (>35); GLUCOSE, FASTING 118 MG/DL (70-100); POTASSIUM SERUM 3.3 MEQ/L (3.5-5.1); SODIUM LEVEL 140 MEQ/L (136-145)
[2018-08-24 06:07] LABS: HEMOGLOBIN 15.6 g/dl (13.5-17.5)
[2018-08-24] MEDS: SLF 3 ML SYR IV SCH ×3 (06:12→21:43)
[2018-08-24 07:17] LABS: MAGNESIUM LEVEL 2.1 MG/DL (1.8-2.4)
[2018-08-24 08:00] VITALS: BP 130/91
[2018-08-24] MEDS ORDERED: POTASSIUM CHLORIDE 10 MEQ SR TABLET PO ONE (08:00)
[2018-08-24 08:38] VITALS: BP 130/90
[2018-08-24] MEDS ORDERED: LORazepam 2 MG/ML VIAL (J2060) IM STA (08:38)
[2018-08-24] MEDS ORDERED: ARIPiprazole 2 MG TAB PO SCH ×2 (09:00→21:00)
--- NOTE | 2018-08-24 10:00 | ECGEPIP ---
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
--- NOTE | 2018-08-24 10:51 | IPNPDOC ---
Text Note Date of Service The patient was seen on 08/24/18. NOTE Subjective: Patient seen and examined at bedside. Overnight events significant for continued agitation. Yesterday swallow evaluation recommended nothing by mouth status. 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 #urinary retention - s/p suprapubic catheter - urology recs for continued suprapubic catheter with outpatient follow up #HTN #agitation - psych c/s appreciated - neuro c/s pending - c/w haldol iv prn, further labs pending #pneumonia - on zosyn day #5 - cultures are unrevealing #UTI - cultures unrevealing #afib - a/c with coumadin - cardizem and metoprolol IV #DLP - lipitor #PE - as above on coumadin #DVT prophylaxis - coumadin Dispo: IV Zosyn, neurology c/s, urology f/u; d/w family at length, to decide on how to proceed ADDENDUM: Discussed with family, and will proceed with comfort measures only. VS,Fishbone, I+O VS, Fishbone, I+O Laboratory Tests 08/24/18 05:29 Red Blood Count 5.18, Mean Corpuscular Volume 92.9, Mean Corpuscular Hemoglobin 30.1, Mean Corpuscular Hemoglobin Concent 32.4, Red Cell Distribution Width 17.1 H, Neutrophils (%) (Auto) 77.4 H, Lymphocytes (%) (Auto) 6.6 L, Monocytes (%) (Auto) 14.3 H, Eosinophils (%) (Auto) 0.4, Basophils (%) (Auto) 0.6, Neutrophils # (Auto) 7.6, Lymphocytes # (Auto) 0.7 L, Monocytes # (Auto) 1.4 H, Eosinophils # (Auto) 0.0, Basophils # (Auto) 0.1, Calcium Level 9.0 Vital Signs Date Time Temp Pulse Resp B/P (MAP) Pulse Ox O2 Delivery O2 Flow Rate FiO2 08/24/18 08:38 155 130/90 08/24/18 08:00 98.3 20 3.0 08/24/18 04:00 93 08/21/18 00:00 Nasal Cannula I&O- Last 24 Hours up to 6 AM 08/24/18 06:00 Intake Total 250 ml Output Total 1150 ml Balance -900 ml FLORY DINERO MD Aug 24, 2018 10:51
[2018-08-24] MEDS ORDERED: ONDANSETRON 4MG/2ML VIAL (J2405) IV PRN (12:00)
[2018-08-24] MEDS ORDERED: SCOPOLAMINE 1MG TRANSDERMAL PATCH TOP PRN (12:00)
[2018-08-24] MEDS: LORazepam 2 MG/ML VIAL (J2060) IV PRN ×5 (13:08→22:39)
[2018-08-24] MEDS ORDERED: HALOPERIDOL 5 MG/ML VIAL (J1630) IV PRN (13:15)
[2018-08-24] MEDS ORDERED: MORPHINE 4 MG/ML 1ML VIAL/SYRINGE (J2270) IV PRN (16:15)
[2018-08-24] MEDS: MORPHINE SULF IN 0.9% NACL 100 MG in APPROPRIATE DILUENT 1 EA IV SCH ×2 (19:58)
[2018-08-25] MEDS: LORazepam 2 MG/ML VIAL (J2060) IV PRN ×9 (00:50→20:08)
[2018-08-25] MEDS: SLF 3 ML SYR IV SCH ×4 (05:04→22:15)
--- NOTE | 2018-08-25 12:40 | IPNPDOC ---
Text Note Date of Service The patient was seen on 08/25/18. NOTE Subjective: Patient seen and examined at bedside. Family at bedside. Objective: General: NAD, lying comfortably in bed A/P: 87 yo male with afib, likely aspiration pneumonia, urinary retention requiring suprapubic catheter, dysphagia unable to tolerate oral intake, now is comfort measures only. VS,Fishbone, I+O VS, Fishbone, I+O Vital Signs Date Time Temp Pulse Resp B/P (MAP) Pulse Ox O2 Delivery O2 Flow Rate FiO2 08/25/18 09:00 3.0 08/24/18 16:52 28 08/24/18 08:38 155 130/90 08/24/18 08:00 98.3 08/24/18 04:00 93 08/21/18 00:00 Nasal Cannula I&O- Last 24 Hours up to 6 AM 08/25/18 05:59 Intake Total 0 ml Output Total 250 ml Balance -250 ml FLORY DINERO MD Aug 25, 2018 12:40
[2018-08-25] MEDS ORDERED: WARFARIN SOD 5 MG TAB PO SCH (17:00)
[2018-08-25] MEDS: MORPHINE SULF IN 0.9% NACL 100 MG in APPROPRIATE DILUENT 1 EA IV SCH ×2 (22:15)
--- NOTE | 2018-08-26 08:35 | IPNPDOC ---
Text Note Date of Service The patient was seen on 08/26/18. 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 Objective: General: NAD, lying comfortably in bed A/P: 87 yo male with afib, likely aspiration pneumonia, urinary retention requiring suprapubic catheter, dysphagia unable to tolerate oral intake, now is comfort measures only. Morphine and ativan dosage increased. VS,Fishbone, I+O VS, Fishbone, I+O Vital Signs Date Time Temp Pulse Resp B/P (MAP) Pulse Ox O2 Delivery O2 Flow Rate FiO2 08/26/18 04:00 2.0 08/24/18 16:52 28 08/24/18 08:38 155 130/90 08/24/18 08:00 98.3 08/24/18 04:00 93 08/21/18 00:00 Nasal Cannula I&O- Last 24 Hours up to 6 AM 08/26/18 06:00 Intake Total 27.3 ml Output Total 20 ml Balance 7.3 ml FLORY DINERO MD Aug 26, 2018 08:35
[2018-08-26] MEDS: SLF 3 ML SYR IV SCH ×2 (14:00→20:57)
[2018-08-26] MEDS: MORPHINE SULF IN 0.9% NACL 100 MG in APPROPRIATE DILUENT 1 EA IV SCH ×2 (15:09)
[2018-08-26] MEDS: LORazepam 2 MG/ML VIAL (J2060) IV PRN (22:19)
[2018-08-27] MEDS: LORazepam 2 MG/ML VIAL (J2060) IV PRN ×3 (01:50→12:45)
[2018-08-27] MEDS: MORPHINE SULF IN 0.9% NACL 100 MG in APPROPRIATE DILUENT 1 EA IV SCH ×4 (05:11→16:04)
[2018-08-27] MEDS: SLF 3 ML SYR IV SCH ×2 (05:11→13:02)
--- NOTE | 2018-08-27 08:46 | IPNPDOC ---
Text Note Date of Service The patient was seen on 08/27/18. 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 Objective: General: NAD, lying comfortably in bed A/P: 87 yo male with afib, likely aspiration pneumonia, urinary retention requiring suprapubic catheter, dysphagia unable to tolerate oral intake, now is comfort measures only. Morphine gtt continues to be increased, titrated to comfort. VS,Fishbone, I+O VS, Fishbone, I+O Vital Signs Date Time Temp Pulse Resp B/P (MAP) Pulse Ox O2 Delivery O2 Flow Rate FiO2 08/27/18 07:55 3.0 08/24/18 16:52 28 08/24/18 08:38 155 130/90 08/24/18 08:00 98.3 08/24/18 04:00 93 08/21/18 00:00 Nasal Cannula I&O- Last 24 Hours up to 6 AM 08/27/18 06:00 Intake Total 22.6 ml Output Total 0 ml Balance 22.6 ml FLORY DINERO MD Aug 27, 2018 08:46
--- NOTE | 2018-08-27 16:41 | DS.PDOC ---
Discharge Summary General Date of Admission Aug 20, 2018 at 18:22 Date of Discharge 08/27/18 - Specialist/Consultants Involve: Tegan Howe MD Specialist/Consultants Involve urology Discharge Summary PROCEDURES PERFORMED DURING STAY: suprapubic catheter DISCHARGE DIAGNOSES: 1. urinary retention/suprapubic catheter 2. pneumonia 3. dysphagia 4. UTI 5. HTN 6. afib/RVR 7. dyslipidemia 8. pulmonary embolism 9. multiple TIA 10. severe pulmonary hypertension s/p surgery 11. #falls/rib fractures COMPLICATIONS/CHIEF COMPLAINT: Metabolic Encephalopathy, Pneumonia. HISTORY OF PRESENT ILLNESS: 87 year old male from [place] visiting the area with family for 2 weeks. He lives with his son and daughter in law in [place], [place] for the past 3 months who were at bedside and history was taken from them. Pateint has dementia and more confused than usual and could not contribute much history. He has PMH of Dementia , TIAs, Afib, Essential tremor, Hypertension, H/o chronic pulmonary embolism with severe pulmonary hypertension s/p surgery > 30 years ago, hyperlipidemia, recent falls x 2 in the past 3 months with rib fractures in right and left, intermittent dysphagia. he was noted to have some cough and some rattling breaths so was put in a recliner to sleep to help with the breathing. On day of presentation, he was found down on the floor confused and cold. He was put back to bed and warmed up however as the day progressed he became more and more lethargic and did not have any urine output. He could not be woken up enough to be fed so then they brought him to the hospital. On arrival to the ED he was febrile to 100.3 tachycardic with afib in RVR at 140s hypoxic with EMS to 85% in RA. He was noted to be confused and somnolent. Catheter was placed to collect urine , Urine output was minimal . CXR showed possible Atelectasis at the right base, Labs significant for WBC of 17K. He was admitted for Pneumonia, acut respiratory faiure with hypoxia and metabolic encephalopathy, Afib with RVR HOSPITAL COURSE: Patient treated for aspiration pneumonia, UTI, rapid afib, urinary retention - unable to place scott so received a suprapubic catheter, dysphagia with strict NPO as unable to tolerate any PO intake, and worsening agitation/delirium, seen by psychiatry. Patient's family decided to proceed with comfort measures only, and patient on 08/27/18 around 04:10PM DISCHARGE MEDICATIONS: Please see below. ALLERGIES: Please see below. PHYSICAL EXAMINATION ON DISCHARGE: Patient . LABORATORY DATA: Please see below. DISPOSITION: Patient . TIME SPENT ON DISCHARGE: 32 minutes. Vital Signs/I&Os Vital Signs Date Time Temp Pulse Resp B/P (MAP) Pulse Ox O2 Delivery O2 Flow Rate FiO2 08/27/18 07:55 3.0 08/24/18 16:52 28 08/24/18 08:38 155 130/90 08/24/18 08:00 98.3 08/24/18 04:00 93 08/21/18 00:00 Nasal Cannula I&O- Last 24 Hours up to 6 AM 08/27/18 06:00 Intake Total 22.6 ml Output Total 0 ml Balance 22.6 ml Microbiology Microbiology 08/20/18 Blood Culture - Final, Complete NO GROWTH AFTER 5 DAYS 08/20/18 Blood Culture - Final, Complete NO GROWTH AFTER 5 DAYS 08/22/18 MRSA Screen - Final, Complete 08/22/18 Gram Stain - Final, Complete 08/22/18 Sputum Culture - Final, Complete 08/20/18 Urine Culture - Final, Complete Discharge Medications Scheduled Amlodipine Besylate (Amlodipine Besylate) 5 Mg Tablet, 5 MG PO QHS, (Reported) Atorvastatin Calcium (Lipitor) 20 Mg Tablet, 20 MG PO QHS, (Reported) Bupropion HCl (Wellbutrin Xl) 300 Mg Tab.er.24h, 300 MG PO QHS, (Reported) Bupropion HCl (Wellbutrin Xl) 150 Mg Tab.er.24h, 150 MG PO QHS, (Reported) Donepezil HCl (Donepezil HCl) 10 Mg Tablet, 10 MG PO QHS, (Reported) Gabapentin (Gabapentin) 400 Mg Capsule, 400 MG PO BID, (Reported) Lisinopril (Lisinopril) 5 Mg Tablet, 5 MG PO QHS, (Reported) Memantine HCl (Namenda) 10 Mg Tablet, 10 MG PO BID, (Reported) Primidone (Primidone) 50 Mg Tablet, 200 MG PO BID, (Reported) Propranolol HCl (Propranolol HCl) 40 Mg Tablet, 40 MG PO BID, (Reported) Venlafaxine HCl (Venlafaxine HCl ER) 150 Mg Cap.er.24h, 300 MG PO QHS, (Reported) Venlafaxine HCl (Venlafaxine HCl ER) 75 Mg Cap.er.24h, 75 MG PO QHS, (Reported) Warfarin Sodium (Warfarin Sodium) 5 Mg Tablet, 5 MG PO Q2D, (Reported) PT ALTERNATES 5MG AND 6 MG, TOOK 6 MG 08/19 Warfarin Sodium (Warfarin Sodium) 6 Mg Tablet, 6 MG PO Q2D, (Reported) PT ALTERNATES 5MG AND 6 MG, HAD 6MG 08/19 Miscellaneous Medications Cannabidiol (Cbd Oil) Btl, (Reported) TAKES 5MG CAPSULES: 1 IN THE AM AND 2 IN THE EVENING FOR TREMORS Allergies Coded Allergies: No Known Allergies (Unverified , 08/20/18) FLORY DINERO MD Aug 27, 2018 16:41
== END 2018-08-27 17:35 | disposition expired | DRG 177 ==
LOC: EDBD 14:49 → M ED 15:28 → M ED INP 18:22 → M PCU 08-21 02:24
PROVIDERS: ADMIT Internal Medicine Nephrology; ATTEND Hospitalist
PROC: 0T9B80Z Drainage of Bladder with Drainage Device, Via Natural or Artificial Opening Endoscopic (ICD-10-PCS; principal; 2018-08-21 00:09)
DX: J69.0 Pneumonitis due to inhalation of food and vomit (principal); J96.01 Acute respiratory failure with hypoxia; G93.41 Metabolic encephalopathy; F03.91 Unspecified dementia, unspecified severity, with behavioral disturbance; I27.82 Chronic pulmonary embolism; N39.0 Urinary tract infection, site not specified; I48.91 Unspecified atrial fibrillation; R13.19 Other dysphagia; G25.0 Essential tremor; F41.9 Anxiety disorder, unspecified; N40.1 Benign prostatic hyperplasia with lower urinary tract symptoms; N35.919 Unspecified urethral stricture, male, unspecified site; Z51.5 Encounter for palliative care; Z66 Do not resuscitate; F32.9 Major depressive disorder, single episode, unspecified; R33.9 Retention of urine, unspecified; E78.5 Hyperlipidemia, unspecified; I10 Essential (primary) hypertension; I27.20 Pulmonary hypertension, unspecified; Z86.73 Personal history of transient ischemic attack (TIA), and cerebral infarction without residual deficits; Z79.01 Long term (current) use of anticoagulants; Z79.899 Other long term (current) drug therapy